=== PATIENT | female | born 2000 | race Caucasian/White ===

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

== ENCOUNTER 2020-03-23 09:13 | Emergency (ER) | payer BC ==
[2020-03-23 09:27] VITALS: BP 125/82; PULSE 74; RESP 18; TEMP 98
[2020-03-23] MEDS ORDERED: AMOXIC-POT CLAV 875MG STARTER PACK 2 TAB BTL PO STA (09:41)
[2020-03-23] MEDS ORDERED: CEPHALEXIN 500MG STARTER PACK 4 CAP BTL PO STA (09:42)
--- NOTE | 2020-03-23 09:43 | ED ---
ENT HPI - General Chief complaint: Dental/Oral Stated complaint: facial swelling Time Seen by Provider: 03/23/20 09:27 Source: patient Mode of arrival: ambulatory Limitations: no limitations - History of Present Illness Initial comments: 20-year-old male presenting today for chief complaint of right lower dental pain. Patient states that her last molar on the right side has been tender since yesterday evening. Patient states she noticed some redness swelling in the area. Patient denies any swelling below tongue swelling of the neck trachea difficulty swallowing breathing. Patient denies fevers rashes or additional complaints upon arrival patient appears well nontoxic no acute distress. Patient states she wanted to catch it early if this was a developing infection. No additional complaints.denies - Related Data Home Medications Medication Instructions Recorded Confirmed Melatonin 10 mg PO HS 03/02/19 03/02/19 Sertraline [Zoloft] 75 mg PO DAILY 03/02/19 03/02/19 Previous Rx's Medication Instructions Recorded Amoxicillin/Potassium Clav 1 tab PO Q12HR 7 Days #14 tab 03/23/20 [Augmentin 875-125 Tablet] Allergies Allergy/AdvReac Type Severity Reaction Status Date / Time No Known Allergies Allergy Verified 03/02/19 13:54 Review of Systems ROS Statement: Those systems with pertinent positive or pertinent negative responses have been documented in the HPI. ROS Other: All systems not noted in ROS Statement are negative. Past Medical History Past Medical History: No Reported History Additional Past Medical History / Comment(s): abd pain History of Any Multi-Drug Resistant Organisms: None Reported Past Surgical History: No Surgical Hx Reported Past Psychological History: Anxiety Smoking Status: Never smoker Past Alcohol Use History: Occasional Past Drug Use History: Marijuana General Exam - General Exam Comments Initial Comments: General: The patient is awake and alert, in no distress, and does not appear acutely ill. Eye: Pupils are equal, round and reactive to light, extra-ocular movements are intact. No nystagmus. There is normal conjunctiva bilaterally. No signs of icterus. Ears, nose, mouth and throat: There are moist mucous membranes and no oral lesions. pain to percussion of most posterior right lower molar. Patient has no evidence of adjacent abscess no fluctuance no redness. There is no swelling below the tongue or below the angle of the mandible. No stridor no drooling or tripoding patient is tolerating oral secretions well she does not appear in acute distress uvula midline. Neck: The neck is supple, there is no tenderness or JVD. Cardiovascular: There is a regular rate and rhythm. No murmur, rub or gallop is appreciated. Respiratory: Lungs are clear to auscultation, respirations are non-labored, breath sounds are equal. No wheezes, stridor, rales, or rhonchi. Musculoskeletal: Normal ROM, no tenderness. Strength 5/5. Sensation intact. Radial pulses equal bilaterally 2+. Neurological: A&O x 3. CN II-XII intact grossly, There are no obvious motor or sensory deficits. Coordination appears grossly intact. Speech is normal. Skin: Skin is warm and dry and no rashes or lesions are noted. Psychiatric: Cooperative, appropriate mood & affect, normal judgment. Limitations: no limitations Course Vital Signs 03/23/20 09:25 Temperature 98.0 F Pulse Rate 74 Respiratory 18 Rate Blood Pressure 125/82 O2 Sat by Pulse 100 Oximetry Medical Decision Making - Medical Decision Making 20yo presenting with dental pain, no complicating process identified at this time but do feel infection is developing Will treat with augmentin and oral medications for pain. Patient is to f/u with dentist. Patient is aware of return parameters which were discussed in detail including signs of airway compromise/udwigs angina. Patient discharged appearing well nontoxic. Disposition Clinical Impression: Pain, dental Disposition: HOME SELF-CARE Condition: Good Instructions (If sedation given, give patient instructions): Dental Abscess (ED), Toothache (ED) Additional Instructions: Please use medication as discussed. Please follow-up with family doctor in the next 2 days. Please return to emergency room if the symptoms increase or worsen or for any other concerns. Prescriptions: Amoxicillin/Potassium Clav [Augmentin 875-125 Tablet] 1 tab PO Q12HR 7 Days #14 tab Is patient prescribed a controlled substance at d/c from ED?: No Referrals: Aicha Perez MD [Primary Care Provider] - 1-2 days Time of Disposition: 09:43
== END 2020-03-23 10:21 | disposition home or self-care (01) ==
LOC: EC 09:13
DX: K08.89 Other specified disorders of teeth and supporting structures (principal); F41.9 Anxiety disorder, unspecified; Z79.899 Other long term (current) drug therapy
CPT/HCPCS: 99283

== ENCOUNTER 2021-05-26 11:12 | Emergency (ER) | payer BC, OTHER ==
[2021-05-26] MEDS ORDERED: CASIRIVIMAB (REGN10933) (EUA) 600 MG, IMDEVIMAB (REGN10987) (EUA) 600 MG in SODIUM CHLO... IVPB ONE (12:15)
[2021-05-26] MEDS ORDERED: SODIUM CHLORIDE 0.9% 50 ML IVPB ONE (12:15)
--- NOTE | 2021-05-26 12:33 | ED ---
Recheck HPI - General Chief Complaint: Recheck/Abnormal Lab/Rx Stated Complaint: 20 Wks preg/covid+ Time Seen by Provider: 05/26/21 11:36 Source: patient, RN notes reviewed Mode of arrival: ambulatory Limitations: no limitations - History of Present Illness Initial Comments: Patient is a 21 year old female that presents to the emergency Department reque sting monoclonal antibodies for Covid. She no she tested positive for covert yesterday his had symptoms for 1-2 days longer than that. She notes she is 20 weeks . She denied any other issues or complaints time. She denied any shortness of breath chest pain fevers. She denied headache nausea vomiting diarrhea constipation fever fatigue chills. She is otherwise well-appearing. - Related Data Home Medications Medication Instructions Recorded Confirmed Melatonin 10 mg PO HS 03/02/19 03/02/19 Sertraline [Zoloft] 75 mg PO DAILY 03/02/19 03/02/19 Previous Rx's Medication Instructions Recorded Amoxicillin/Potassium Clav 1 tab PO Q12HR 7 Days #14 tab 03/23/20 [Augmentin 875-125 Tablet] Allergies Allergy/AdvReac Type Severity Reaction Status Date / Time No Known Allergies Allergy Verified 05/26/21 11:31 Review of Systems ROS Statement: Those systems with pertinent positive or pertinent negative responses have been documented in the HPI. ROS Other: All systems not noted in ROS Statement are negative. Past Medical History Past Medical History: No Reported History Additional Past Medical History / Comment(s): abd pain History of Any Multi-Drug Resistant Organisms: None Reported Past Surgical History: No Surgical Hx Reported Past Psychological History: Anxiety Smoking Status: Never smoker Past Alcohol Use History: Occasional Past Drug Use History: Marijuana General Exam Limitations: no limitations General appearance: alert, in no apparent distress Head exam: Present: atraumatic, normocephalic, normal inspection Eye exam: Present: normal appearance, PERRL, EOMI. Absent: scleral icterus, conjunctival injection, periorbital swelling ENT exam: Present: normal exam, mucous membranes moist Neck exam: Present: normal inspection Respiratory exam: Present: normal lung sounds bilaterally. Absent: respiratory distress, wheezes, rales, rhonchi, stridor Cardiovascular Exam: Present: regular rate, normal rhythm, normal heart sounds. Absent: systolic murmur, diastolic murmur, rubs, gallop, clicks Extremities exam: Present: normal inspection, full ROM, normal capillary refill. Absent: tenderness, pedal edema, joint swelling, calf tenderness Neurological exam: Present: alert, oriented X3 Psychiatric exam: Present: normal affect, normal mood Skin exam: Present: warm, dry, intact, normal color. Absent: rash Course Vital Signs 05/26/21 11:29 Temperature 97.5 F L Pulse Rate 90 Respiratory 16 Rate Blood Pressure 123/85 O2 Sat by Pulse 97 Oximetry Medical Decision Making - Medical Decision Making 21-year-old female 20 weeks Covid-positive requesting monoclonal antibody. Patient does meet criteria area Patient will be given monoclonal antibody infusion. Patient is with discharge home after. Case discussed with Dr. Moctezuma, patient discharge home. Disposition Clinical Impression: COVID Disposition: HOME SELF-CARE Condition: Stable Instructions (If sedation given, give patient instructions): Coronavirus Disease 2019 (COVID-19) Additional Instructions: Please return to the Emergency Department if symptoms worsen or any other concerns. Follow-up with primary care 1-2 days. Quarantine per CDC guidelines. Use Tylenol as needed for fever. Get plenty or rest and fluids. Is patient prescribed a controlled substance at d/c from ED?: No Referrals: Aicha Perez MD [Primary Care Provider] - 1-2 days Time of Disposition: 12:32
[2021-05-26 14:28] VITALS: RESP 18
[2021-05-26 14:31] VITALS: BP 102/76; PULSE 93; TEMP 97.2
== END 2021-05-26 14:29 | disposition home or self-care (01) ==
LOC: EC 11:12
DX: O98.512 Other viral diseases complicating pregnancy, second trimester (principal); U07.1 COVID-19; O99.322 Drug use complicating pregnancy, second trimester; F12.90 Cannabis use, unspecified, uncomplicated; O99.342 Other mental disorders complicating pregnancy, second trimester; F41.9 Anxiety disorder, unspecified; Z79.899 Other long term (current) drug therapy; Z3A.20 20 weeks gestation of pregnancy
CPT/HCPCS: 96365; 99283; Q0243

== ENCOUNTER 2021-10-11 11:22 | Outpatient (CLI) | payer BC, OTHER ==
[2021-10-11 13:49] VITALS: BP 125/80; PULSE 83; RESP 15; TEMP 96.3
--- NOTE | 2021-10-14 10:39 | P.MSEPDOC ---
Presenting Problems - Arrival Data Date of Arrival on Unit: 10/11/21 Time of Arrival on Unit: 11:22 Mode of Transport: Ambulatory - Complaint OB-Reason for Admission/Chief Complaint: Possible Onset of Labor Comment: contx started at 0300 Medical History - Information : 1 Para: 0 Term: 0 : 0 Abortions: Spontaneous or Elective: 0 Number of Living Children: 0 - Gestational Age Gestational Age by WON (wks/days): 39 Weeks and 4 Days Review of Systems - Review of Systems Constitutional: No problems Breast: No problems ENT: No problems Cardiovascular: No problems Respiratory: No problems Gastrointestinal: No problems Genitourinary: No problems Musculoskeletal: No problems Neurological: No problems Skin: No problems Vital Signs - Temperature Temperature: 96.3 F Temperature Source: Temporal Artery Scan - Pulse Pulse Oximetery Pulse Rate: 83 Pulse Assessment Method: Pulse Oximetry - Respirations Respiratory Rate: 15 Oxygen Delivery Method: Room Air O2 Sat by Pulse Oximetry: 100 - Blood Pressure Right Arm Sitting Blood Pressure: 125/80 Blood Pressure Mean: 95 Blood Pressure Source: Automatic Cuff Medical Screen Scoring - Cervical Exam Dilation (cm): 1.5 Effacement (%): 60 Station: -2 Membranes: Intact - Assessment - Baby A Baseline FHR: 145 Heart Rate - NICHD Category: Category I (Normal) NST: Reactive Physician Notification - Physician Notified Physician Notified Date: 10/11/21 Physician Notified Time: 13:11 Physician: Kim Siddiqi Order Received: Yes - Notification Comment Comment: pt is 39 4/7, , watched for an hr and remained 1.5cm , 60% and -2. Dc pt home, f/u in the office today per Dr Siddiqi Maternal Triage Index - Maternal Triage Index Presenting for scheduled procedure w/no complaint: No - Stat/Priority 1 Stat Priority 1: No - Urgent/Priority 2 Urgent Priority 2: No - Prompt/Priority 3 Prompt Priority 3: No - Non-Urgent/Priority 4 Non-Urgent Priority 4: Yes Criteria Met for Priority 4: 39 4/7 weeks, irregular contx Disposition - Disposition OB Disposition: Physician follow up in office, Triage, Discharge to home, Written follow up instructions reviewed Discharge Date: 10/11/21 Discharge Time: 13:20 I agree with the RN Medical Screening Exam: Yes Case reviewed; plan agreed upon as documented in EMR&OBIX.: Yes Comments: Patient was neither seen nor examined by me Diagnosis: FALSE LABOR AT OR AFTER 37 COMPLETED WEEKS OF GESTATION
== END 2021-10-11 13:20 | disposition home or self-care (01) ==
LOC: FBPOP 11:22
PROVIDERS: ATTEND Obstetrics & Gynecology
DX: O47.1 False labor at or after 37 completed weeks of gestation (principal); Z3A.39 39 weeks gestation of pregnancy
CPT/HCPCS: 59025; 99213

== ENCOUNTER 2021-10-17 06:01 | Inpatient (IN) | payer BC, OTHER ==
[2021-10-17] MEDS ORDERED: TERBUTALINE 1 MG/ML VIAL SQ PRN (06:15)
[2021-10-17] MEDS ORDERED: OXYTOCIN 30 UNITS/500 ML NS 30 UNIT in SALINE 1 500ML.BAG IV SCH (06:15)
[2021-10-17] MEDS ORDERED: CARBOPROST TROMETHAMINE 250 MCG/ML 1 ML AMP IM PRN (06:15)
[2021-10-17] MEDS ORDERED: METHYLERGONOVINE 0.2 MG/ML 1 ML AMP IM PRN (06:15)
[2021-10-17] MEDS ORDERED: OXYTOCIN 10 UNIT/ML 1 ML VIAL IM PRN (06:15)
[2021-10-17] MEDS ORDERED: LACTATED RINGERS 1,000 ML IV SCH (06:15)
[2021-10-17] MEDS ORDERED: LIDOCAINE 1% (PF) 10 MG/ML (30 ML SDV) SQ PRN (06:15)
[2021-10-17] MEDS: LACTATED RINGERS 1,000 ML IV SCH ×2 (06:29→10:25)
[2021-10-17 06:43] LABS: Basophils % (A) 0 %; Eosinophils # (A) 0.1 k/uL (0-0.7); Eosinophils % (A) 1 %; HCT 36.9 % (34.0-46.0); HGB 12.1 gm/dL (11.4-16.0); Hypochromasia Slight; Lymphocytes # (A) 2.3 k/uL (1.0-4.8); Lymphocytes % (A) 33 %; MCH 28.3 pg (25.0-35.0); MCHC 32.8 g/dL (31.0-37.0); MCV 86.4 fL (80.0-100.0); Mean Platelet Volume 10.8; Monocytes # (A) 0.3 k/uL (0-1.0); Monocytes % (A) 5 %; Neutrophils % (A) 58 %; Platelet Count 144 k/uL (150-450); RBC 4.27 m/uL (3.80-5.40); RDW 13.7 % (11.5-15.5); WBC 6.9 k/uL (3.8-10.6)
--- NOTE | 2021-10-17 07:41 | P.HPOB ---
History of Present Illness H&P Date: 10/17/21 Chief Complaint: Here for induction of labor for postdates and fav orable cervix This is a 21-year-old female 1 para 0 EDC 10/14/2021 at 40-3/7 weeks' gestation who presents for induction, with mild irregular spontaneous uterine contractions. Fetus is been active throughout the . She denies fluid leakage or vaginal bleeding. Past medical history is significant for an autoimmune disorder, followed by equipment service associate. Past surgical history eustachian tubes into the uterus, wisdom teeth extracted. Current medications vitamins daily. ALLERGIES none known. Current medications vitamins daily, baby aspirin daily. Family history significant for hypertension, breast cancer, Lyme's disease, prostate cancer, alcoholism. Social history patient is a former smoker, former marijuana user, she is single, she denies alcohol or other drug use. history is significant for blood type A positive, rubella status immune. VDRL testing, urine culture, hepatitis B surface antigen, HIV testing, gonorrhea and chlamydia cultures all negative. One-hour Glucola 114. On exam patient is 5 foot 7 inches, 168 pounds, blood pressure 129/83. Vital signs are stable and she is afebrile. The general physical exam is within normal limits. The cervix is 3 cm dilated, 70% effaced, -1 station, vertex presentation. Artificial amniorrhexis reveals clear fluid. heart rate is consistent with reactive NST. Impression: 40-3/7 weeks intrauterine , early spontaneous labor, here for induction, all signs reassuring. Plan: Oxytocin per hospital protocol. Close maternal and surveillance. Analgesic options reviewed. Anticipate normal spontaneous vaginal delivery. Review of Systems Constitutional: Reports as per HPI Past Medical History Past Medical History: No Reported History Additional Past Medical History / Comment(s): abd pain History of Any Multi-Drug Resistant Organisms: None Reported Past Surgical History: No Surgical Hx Reported Additional Past Surgical History / Comment(s): WISDOM TEETH REMOVAL Past Anesthesia/Blood Transfusion Reactions: No Reported Reaction Past Psychological History: Anxiety Smoking Status: Never smoker Past Alcohol Use History: Occasional Past Drug Use History: Marijuana Additional Drug Use History / Comment(s): NONE DURING - Past Family History Mother Family Medical History: Hypertension Medications and Allergies Home Medications Medication Instructions Recorded Confirmed Type Pnv No.95/Ferrous Fum/Folic AC 1 tablet PO DAILY 10/11/21 10/17/21 History [ Multivitamin Tablet] Allergies Allergy/AdvReac Type Severity Reaction Status Date / Time No Known Allergies Allergy Verified 10/17/21 06:14 Exam Vital Signs Temp Pulse Resp BP Pulse Ox 10/17/21 06:13 97.3 F L 93 16 129/83 99 Intake and Output 10/16/21 10/17/21 10/17/21 22:59 06:59 14:59 Other: Weight 76.204 kg See dictation under HPI please Results Result Diagrams: 10/17/21 06:25 Abnormal Lab Results - Last 24 Hours (Table) 10/17/21 Range/Units 06:25 Plt Count 144 L (150-450) k/uL Assessment and Plan Assessment: 40 3/7 weeks , early labor. Here for induction, all signs reassuring. Plan: Analgesic options discussed. Oxytocin per hospital protocol. Close maternal and surveillance. Anticipating normal spontaneous vaginal delivery. Time with Patient: Less than 30
[2021-10-17] MEDS ORDERED: ROPIVACAINE 5MG/ML 20ML VIAL ONE (10:07)
[2021-10-17] MEDS ORDERED: fentaNYL (PF) 50 MCG/ML 5 ML AMP ONE (10:07)
[2021-10-17] MEDS ORDERED: SODIUM CHLORIDE 0.9% 100 ML BAG ONE (10:07)
[2021-10-17] MEDS ORDERED: diphenhydrAMINE 25 MG CAP PO PRN (14:05)
[2021-10-17] MEDS ORDERED: diphenhydrAMINE 50 MG CAP PO PRN (14:05)
[2021-10-17] MEDS ORDERED: BENZOCAINE/MENTHOL SPRAY 1 GM/SPRAY AEROSOL TOPICAL PRN (14:05)
[2021-10-17] MEDS ORDERED: LANOLIN CREAM 5 GM TUBE TOPICAL PRN (14:05)
[2021-10-17] MEDS ORDERED: SIMETHICONE 80 MG CHEWABLE PO PRN (14:05)
[2021-10-17] MEDS ORDERED: ACETAMINOPHEN TAB 325 MG TAB PO PRN (14:05)
[2021-10-17] MEDS ORDERED: HYDROCORTISONE 2.5% RECTAL CREAM 30 GM TUBE RECTAL PRN (14:05)
[2021-10-17] MEDS ORDERED: ZOLPIDEM 5 MG TAB PO PRN (14:05)
[2021-10-17] MEDS ORDERED: diphenhydrAMINE 50 MG/ML 1 ML VIAL IVP PRN ×2 (14:05)
[2021-10-17] MEDS ORDERED: diphenhydrAMINE ELIXIR 25 MG/10 ML CUP PO PRN (14:05)
--- NOTE | 2021-10-17 14:05 | P.PROBDLV ---
Vaginal Delivery Note - . Vaginal Delivery Note: This is a 21-year-old female 1 para 0 EDC 10/14/2021 at 40-3/7 weeks who presented for induction postdates and favorable cervix. is remarkable for positive blood type, rubella status immune, group B strep cultures negative. Please see dictated history and physical for details. Artificial amniorrhexis revealed clear fluid. Oxytocin started and titrated per hospital protocol. Epidural placed per her request. Patient progressed well th rough the first stage of labor was judged to be completely dilated at 1321 hours and began the second stage of labor at that time. With excellent maternal expulsive efforts the infant's head crowned in the occiput anterior position. Perineal body was prepped and draped in usual sterile fashion. Infant's head delivered occiput anterior and she restituted accordingly. The left or anterior shoulder was gently delivered from underneath the pubic symphysis at which time the oropharynx, nasopharynx, and external nares were bulb suctioned on the perineal body. Patient was quickly and easily delivered of a liveborn female at 1350 hours. Umbilical cord was doubly clamped and ligated, she was handed to waiting nurses for evaluation where scores of 9 and 9 at one and 5 minutes respectively were given. Placenta delivered spontaneously, it was inspected and noted to be intact with trivascular cord at 1351 hours. Careful inspection of the cervix, vagina, perineum, periurethral, and perirectal areas revealed a small first-degree perineal laceration easily repaired with a single [id number] suture of repeat. Total estimated blood loss 250 mL's. Infant weighed 3155 g or 6 lbs. 15 oz. Family are allowed to begin the bonding experience in the LDR.
[2021-10-17] MEDS: IBUPROFEN 600 MG TAB PO SCH ×2 (19:16→20:26)
[2021-10-17] MEDS: SENNOSIDES-DOCUSATE SODIUM 1 EACH TAB PO SCH (20:16)
[2021-10-18 01:28] VITALS: RESP 14
[2021-10-18] MEDS: IBUPROFEN 600 MG TAB PO SCH ×3 (04:06→15:12)
[2021-10-18] MEDS: SENNOSIDES-DOCUSATE SODIUM 1 EACH TAB PO SCH (08:32)
--- NOTE | 2021-10-18 08:55 | P.DS ---
Providers Date of admission: 10/17/21 06:01 Expected date of discharge: 10/18/21 Attending physician: Kim Siddiqi Primary care physician: Stated None Hospital Course: This is a 21-year-old female 1 para 0 EDC 10/14/2021 at 40-3/7 weeks' gestation. Patient presented for induction for postdates , but was found to be in early active spontaneous labor. Group B strep cultures negative, rubella status immune, blood type A+. Please see dictated history and physical for details. Patient went on to deliver vaginally a liveborn female infant with scores of 9 and 9 at one and 5 minutes respectively. weighed 3155 g or 6 lbs. 15 oz. There was a small first-degree perineal laceration easily repaired. Estimated blood loss 250 mL's. Please see my dictated delivery note for details. This morning the patient is doing very well. She is voiding, ambulating, passing flatus without difficulty. Vital signs are stable and she is afebrile. Minimal lochia rubra. [place] is also doing well and will likely be discharged home today. The patient is judged to be in excellent condition for discharge home. She will follow-up with me in the office in 6 weeks. I have reminded her no intercourse, tampons or douching. She will use [id number] Advil or Aleve, or Motrin as needed for pain. She will call with any fevers shakes or chills, foul smelling or copious lochia, with the passage of large blood clots, with any pain not alleviated by [id number] products, or indeed with any difficulties or concerns. Assessment: Doing well first day Patient Condition at Discharge: Good Plan - Discharge Summary Discharge Rx Participant: No New Discharge Prescriptions: No Action Pnv No.95/Ferrous Fum/Folic AC [ Multivitamin Tablet] 1 tablet PO DAILY Discharge Medication List Pnv No.95/Ferrous Fum/Folic AC [ Multivitamin Tablet] 1 tablet PO DAILY 10/11/21 [History] Follow up Appointment(s)/Referral(s): Kim Siddiqi MD [STAFF PHYSICIAN] - 6 Weeks Discharge Disposition: HOME SELF-CARE
[2021-10-18 13:14] VITALS: BP 113/70; PULSE 71; TEMP 98.1
== END 2021-10-18 14:40 | disposition home or self-care (01) | DRG 806 ==
LOC: 4FBP 06:01
PROVIDERS: ADMIT Obstetrics & Gynecology; ATTEND Obstetrics & Gynecology
PROC: 10E0XZZ Delivery of Products of Conception, External Approach (ICD-10-PCS; principal; 2021-10-17)
PROC: 0HQ9XZZ Repair Perineum Skin, External Approach (ICD-10-PCS; 2021-10-17)
PROC: 4A0HXCZ Measurement of Products of Conception, Cardiac Rate, External Approach (ICD-10-PCS; 2021-10-17)
PROC: 10907ZC Drainage of Amniotic Fluid, Therapeutic from Products of Conception, Via Natural or Artificial Opening (ICD-10-PCS; 2021-10-17)
DX: O48.0 Post-term pregnancy (principal); O70.0 First degree perineal laceration during delivery; O99.12 Other diseases of the blood and blood-forming organs and certain disorders involving the immune mechanism complicating childbirth; Z37.0 Single live birth; F41.9 Anxiety disorder, unspecified; O99.344 Other mental disorders complicating childbirth; D89.89 Other specified disorders involving the immune mechanism, not elsewhere classified; Z3A.40 40 weeks gestation of pregnancy; Z79.82 Long term (current) use of aspirin; Z80.3 Family history of malignant neoplasm of breast; Z82.49 Family history of ischemic heart disease and other diseases of the circulatory system; Z87.891 Personal history of nicotine dependence
CPT/HCPCS: 85025; 86850; 86900; 86901

== ENCOUNTER 2023-11-09 06:06 | Inpatient (IN) | payer BC, OTHER ==
[2023-11-09] MEDS ORDERED: TERBUTALINE 1 MG/ML VIAL SQ PRN (06:21)
[2023-11-09] MEDS ORDERED: LIDOCAINE 0.5% (PF) 5 MG/ML (50 ML SDV) SQ PRN (06:21)
[2023-11-09] MEDS ORDERED: TRANEXAMIC 1,000 MG/100ML-NACL 1,000 MG in EMPTY BAG 1 BAG IV PRN (06:21)
[2023-11-09] MEDS ORDERED: CARBOPROST TROMETHAMINE 250 MCG/ML 1 ML AMP IM PRN (06:21)
[2023-11-09] MEDS ORDERED: miSOPROStoL 200 MCG TAB PO PRN (06:21)
[2023-11-09] MEDS ORDERED: OXYTOCIN 10 UNIT/ML 1 ML VIAL IM PRN (06:21)
[2023-11-09] MEDS ORDERED: METHYLERGONOVINE 0.2 MG/ML 1 ML AMP IM PRN (06:21)
[2023-11-09] MEDS: LACTATED RINGERS 1,000 ML IV SCH (06:39)
[2023-11-09] MEDS: OXYTOCIN 30 UNITS/500 ML NS 30 UNIT in SALINE 1 500ML.BAG IV SCH (06:40)
[2023-11-09 06:45] LABS: Basophils % (A) 1 %; Eosinophils # (A) 0.1 k/uL (0-0.7); Eosinophils % (A) 2 %; HCT 36.2 % (34.0-46.0); HGB 11.7 gm/dL (11.4-16.0); Lymphocytes # (A) 2.9 k/uL (1.0-4.8); Lymphocytes % (A) 36 %; MCH 27.4 pg (25.0-35.0); MCHC 32.4 g/dL (31.0-37.0); MCV 84.5 fL (80.0-100.0); Mean Platelet Volume 10.6; Monocytes # (A) 0.3 k/uL (0-1.0); Monocytes % (A) 4 %; Neutrophils # (A) 4.4 k/uL (1.3-7.7); Neutrophils % (A) 56 %; Platelet Count 144 k/uL (150-450); RBC 4.28 m/uL (3.80-5.40); RDW 12.7 % (11.5-15.5); WBC 7.9 k/uL (3.8-10.6)
[2023-11-09] MEDS ORDERED: fentaNYL (PF) 50 MCG/ML 5 ML AMP ONE (10:51)
[2023-11-09] MEDS ORDERED: ROPIVACAINE 5 MG/ML 30 ML VIAL ONE (10:51)
[2023-11-09] MEDS ORDERED: SODIUM CHLORIDE 0.9% 250 ML BAG ONE (10:51)
[2023-11-09] MEDS ORDERED: SIMETHICONE 80 MG CHEWABLE PO PRN (13:35)
[2023-11-09] MEDS ORDERED: HYDROCORTISONE 2.5% RECTAL CREAM 30 GM TUBE RECTAL PRN (13:35)
[2023-11-09] MEDS ORDERED: diphenhydrAMINE 25 MG CAP PO PRN (13:35)
[2023-11-09] MEDS ORDERED: BENZOCAINE/MENTHOL SPRAY 1 GM/SPRAY AEROSOL TOPICAL PRN (13:35)
[2023-11-09] MEDS ORDERED: ACETAMINOPHEN TAB 325 MG TAB PO PRN (13:35)
[2023-11-09] MEDS ORDERED: diphenhydrAMINE 50 MG CAP PO PRN (13:35)
[2023-11-09] MEDS ORDERED: diphenhydrAMINE 50 MG/ML 1 ML VIAL IVP PRN ×2 (13:35)
[2023-11-09] MEDS ORDERED: LANOLIN CREAM 1 GM TUBE TOPICAL PRN (13:35)
[2023-11-09] MEDS ORDERED: ZOLPIDEM 5 MG TAB PO PRN (13:35)
[2023-11-09] MEDS: IBUPROFEN 600 MG TAB PO SCH (13:45)
[2023-11-09] MEDS ORDERED: OXYTOCIN 30 UNITS/500 ML NS 30 UNIT in SALINE 1 500ML.BAG IV SCH (13:45)
--- NOTE | 2023-11-09 13:47 | P.PROBDLV ---
Vaginal Delivery Note - . Vaginal Delivery Note: 23-year-old 2 para 1 at 39-0/7 weeks presented to labor and delivery for induction of labor. Patient was admitted induction of labor was begun per hospital protocol. Amniotomy was performed and copious clear fluid was obtained. Patient did become uncomfortable with oxytocin therefore requested epidural. Epidural was placed without difficulty by the anesthesia department. Patient made good progress toward complete dilation. Once patient was noted be completely dilated she began pushing and had a normal spontaneous vaginal delivery of a viable male infant at 1307, weight of 7 pounds 8 ounces, Apgars of 8 and 9 at 1 and 5 minutes respectively. was delivered through a loose body cord that was reduced during delivery. After 2-minute delay the umbilical cord was doubly clamped and cut. Placenta was delivered spontaneously intact with a three-vessel cord being noted. On inspection the patient's vaginal vault a first-degree perineal laceration was appreciated. This was repaired in the usual fashion with 3-0 Rapide. Uterus was noted to be firm below the umbilicus. Estimated blood loss for this delivery 100 cc. All counts were noted correct x 2 at the end of the delivery. Patient and tolerated delivery well and are resting comfortably.
--- NOTE | 2023-11-09 13:47 | P.HPOB ---
History of Present Illness H&P Date: 11/09/23 Chief Complaint: IUP @ 39 0/7 weeks This is a 23 yo that presents for induction of labor. Patient has been receiving routine care with myself which has been essentially uncomplicated. This morning patient notes good movement admits to an occasional c ontraction denies vaginal bleeding or loss of fluid. On blood work this patient is a blood type of A+, rubella status immune, hepatitis B surface antigen negative, HIV negative, RPR is nonreactive, grew beta strep culture is negative. Review of Systems Constitutional: Denies chills, Denies fatigue, Denies fever Ears, nose, mouth and throat: Denies headache Cardiovascular: Reports leg edema Respiratory: Denies dyspnea Gastrointestinal: Denies constipation, Denies diarrhea, Denies nausea, Denies vomiting Genitourinary: Reports Past Medical History Past Medical History: No Reported History, Rheumatoid Arthritis (RA) Additional Past Medical History / Comment(s): abd pain History of Any Multi-Drug Resistant Organisms: None Reported Past Surgical History: No Surgical Hx Reported Additional Past Surgical History / Comment(s): WISDOM TEETH REMOVAL Past Anesthesia/Blood Transfusion Reactions: No Reported Reaction Past Psychological History: Anxiety, Depression Smoking Status: Never smoker Past Alcohol Use History: None Reported Past Drug Use History: None Reported Additional Drug Use History / Comment(s): NONE DURING - Past Family History Mother Family Medical History: Hypertension Medications and Allergies Home Medications Medication Instructions Recorded Confirmed Type Pnv No.95/Ferrous Fum/Folic AC 1 tablet PO DAILY 10/11/21 11/09/23 History [ Multivitamin Tablet] Allergies Allergy/AdvReac Type Severity Reaction Status Date / Time No Known Allergies Allergy Verified 11/09/23 06:19 Exam Osteopathic Statement: *. No significant issues noted on an osteopathic structural exam other than those noted in the History and Physical/Consult. Vital Signs Temp Pulse Resp BP Pulse Ox 11/09/23 06:44 97.3 F L 73 18 127/84 99 Intake and Output 11/08/23 11/09/23 11/09/23 22:59 06:59 14:59 Other: Weight 77.111 kg Targeted physical exam is performed this date General is well-nourished well- developed female in no acute distress, breathing is noted to be nonlabored, heart has a regular rhythm, abdomen is gravid, and cervical exam she is 3/70/-2 station amniotomy is performed and clear fluid was obtained. heart tones are noted to be category 1 and she is ankur every 3 to 4 minutes. Results Result Diagrams: 11/09/23 06:35 Abnormal Lab Results - Last 24 Hours (Table) 11/09/23 Range/Units 06:35 Plt Count 144 L (150-450) k/uL Assessment and Plan (1) Term Current Visit: Yes Status: Acute Code(s): Z34.90 - ENCNTR FOR SUPRVSN OF NORMAL , UNSP, UNSP TRIMESTER SNOMED Code(s): 76958181 Plan: 23-year-old G2, P1 at 39 weeks of presents for induction of labor. Patient is admitted and Pitocin induction of labor has begun per hospital protocol, amniotomy was performed clear fluid was obtained. Options for analgesia are discussed with patient including Nubain, nitrous, epidural. Patient will consider. Anticipate spontaneous vaginal delivery later this afternoon.
[2023-11-09] MEDS: SENNOSIDES-DOCUSATE SODIUM 1 EACH TAB PO SCH (20:03)
[2023-11-10 00:29] VITALS: PULSE 84; RESP 16
--- NOTE | 2023-11-10 09:37 | P.DS ---
Providers Date of admission: 11/09/23 06:06 Expected date of discharge: 11/10/23 Attending physician: Noris Toth Primary care physician: Aicha Perez - Discharge Diagnosis(es) (1) Term Current Visit: Yes Status: Acute (2) Status post vaginal delivery Current Visit: Yes Status: Acute (3) Obstetrical laceration, first degree Current Visit: Yes Status: Acute Hospital Course: 23-year-old G2 now P2 that presented to labor and delivery yesterday at 3 9 0/7 weeks for induction of labor. Patient had been receiving routine care with myself which has been essentially uncomplicated. Patient requested induction of labor. Patient was admitted to labor and delivery and Pitocin induction of labor was begun per hospital protocol. Patient underwent amniotomy and clear fluid was obtained. Patient did request epidural for pain control. Patient had epidural placed without difficulty by the anesthesia department. Patient made good progress toward complete. Once completely dilated she began pushing and had a normal spontaneous vaginal delivery of a viable male at 1307, weight of 7 pounds 8 ounces, Apgars of 8 and 9 at 1 and 5 minutes respectively. Patient did sustain a first-degree perineal laceration. This was repaired in usual fashion with 3-0 Rapide. Patient has done well . On this day #1 she is ambulating and voiding without difficulty. States her pain is well-controlled. She denies concerns. She is breast-feeding without difficulty. She would like discharge home. Patient Condition at Discharge: Good Plan - Discharge Summary New Discharge Prescriptions: No Action Pnv No.95/Ferrous Fum/Folic AC [ Multivitamin Tablet] 1 tablet PO DAILY Discharge Medication List Pnv No.95/Ferrous Fum/Folic AC [ Multivitamin Tablet] 1 tablet PO DAILY 10/11/21 [History] Follow up Appointment(s)/Referral(s): Noris Toth DO [Doctor of Osteopathic Medicine] - 6 Weeks Patient Instructions/Handouts: Vaginal Delivery (DC), Vaginal Delivery (GEN) Activity/Diet/Wound Care/Special Instructions: No intercourse, tampons or douching. No heavy lifting greater than a gallon of milk. No driving for two weeks. Call with any fever, shakes or chills, with any pain not alleviated by over the counter meds, or with any quesions or concerns. Discharge Disposition: HOME SELF-CARE
[2023-11-10 11:09] VITALS: BP 113/76; TEMP 98
== END 2023-11-10 14:00 | disposition home or self-care (01) | DRG 807 ==
LOC: 4FBP 06:06
PROVIDERS: ADMIT Obstetrics & Gynecology Obstetrics; ATTEND Obstetrics & Gynecology Obstetrics
PROC: 10E0XZZ Delivery of Products of Conception, External Approach (ICD-10-PCS; principal; 2023-11-09)
PROC: 10907ZC Drainage of Amniotic Fluid, Therapeutic from Products of Conception, Via Natural or Artificial Opening (ICD-10-PCS; principal; 2023-11-09)
PROC: 0HQ9XZZ Repair Perineum Skin, External Approach (ICD-10-PCS; principal; 2023-11-09)
PROC: 3E033VJ Introduction of Other Hormone into Peripheral Vein, Percutaneous Approach (ICD-10-PCS; principal; 2023-11-09)
DX: O99.892 Other specified diseases and conditions complicating childbirth (principal); O99.344 Other mental disorders complicating childbirth; O70.0 First degree perineal laceration during delivery; F41.9 Anxiety disorder, unspecified; F32.A Depression, unspecified; M06.9 Rheumatoid arthritis, unspecified; Z28.310 Unvaccinated for COVID-19; Z3A.39 39 weeks gestation of pregnancy; Z37.0 Single live birth
CPT/HCPCS: 85025; 86850; 86900; 86901

== ENCOUNTER → 2024-01-18 | Outpatient (CLI) | payer BC ==
--- NOTE | 2024-01-19 16:06 | CA ---
Transthoracic Echo Report Name: Bernabe Espinoza Age: 24 Gender: F : 2000 Exam Date: 01/18/2024 18:05 Exam Location: [facility] Ht (in): 67 Wt (lb): 151 Ordering Physician: Aicha Perez MD Attending/Referring Phys: Aicha Perez MD [employer] [facility], [facility] Procedure CPT: Indications: R01.1 HEART MURMUR Cardiac Hx: Technical Quality: Good Contrast 1: Total Dose (mL): Contrast 2: Total Dose (mL): MEASUREMENTS (Male / Female) Normal Values 2D ECHO LV Diastolic Diameter PLAX 4.3 cm 4.2 - 5.9 / 3.9 - 5.3 cm LV Systolic Diameter PLAX 2.9 cm IVS Diastolic Thickness 0.9 cm 0.6 - 1.0 / 0.6 - 0.9 cm LVPW Diastolic Thickness 0.8 cm 0.6 - 1.0 / 0.6 - 0.9 cm LV Relative Wall Thickness 0.4 RV Internal Dim ED PLAX 2.1 cm LA Systolic Diameter LX 2.8 cm 3.0 - 4.0 / 2.7 - 3.8 cm LA Volume 28.1 cm??? 18 - 58 / 22 - 52 cm??? LA Volume Index 15.6 cm???/m??? 16 - 28 cm???/m??? M-MODE Aortic Root Diameter MM 2.6 cm AV Cusp Separation MM 2.0 cm DOPPLER AV Peak Velocity 89.6 cm/s AV Peak Gradient 3.2 mmHg MV Area PHT 4.0 cm??? Mitral E Point Velocity 91.2 cm/s Mitral A Point Velocity 50.8 cm/s Mitral E to A Ratio 1.8 MV Deceleration Time 189.4 ms FINDINGS Left Ventricle Left ventricular ejection fraction is estimated at 55-60 %. Left ventricular cavity size normal. Left ventricular wall thickness normal. Normal left ventricular wall motion. Right Ventricle Normal right ventricular size and function. Unable to estimate the right ventricular systolic pressure. Right Atrium Right atrium not well visualized. Left Atrium Normal left atrial size. No left atrial thrombus or mass present. Mitral Valve Structurally normal mitral valve. No mitral stenosis, regurgitation or prolapse. Aortic Valve Trileaflet aortic valve. No aortic valve stenosis or regurgitation. Tricuspid Valve Structurally normal tricuspid valve. No tricuspid stenosis, regurgitation or prolapse. Pulmonic Valve Structurally normal pulmonic valve. Trace pulmonic regurgitation. Pericardium No pericardial effusion. No pleural effusion. Aorta Normal size aortic root and proximal ascending aorta. CONCLUSIONS Left ventricular ejection fraction 55-60% Normal left ventricular wall thickness Normal left atrial size No mitral regurgitation No tricuspid regurgitation No pericardial effusion Previewed by: Dr. Ab Porter DO (Electronically Signed) Final Date: 19 January 2024 16:05
== END | disposition home or self-care (01) ==
LOC: RADECHMAIN 17:55
PROVIDERS: ATTEND Family Medicine
DX: R01.1 Cardiac murmur, unspecified (principal)
CPT/HCPCS: 93306